=== PATIENT | male | born 1945 | race Caucasian/White ===

== ENCOUNTER → 2021-03-18 | Outpatient (CLI) | payer MEDICARE ==
[~2021-03-18] MED LIST: BENAZEPRIL-HCT1 EAC1 PO; DOXAZOSIN MESYLA4 MG PO; FINASTERIDE5 MG PO; LEVOTHYROXINE125 MCG PO
== END ==
LOC: RAD 11:11
PROVIDERS: ATTEND Internal Medicine Gastroenterology
DX: K59.09 Other constipation (principal); Z86.010 Personal history of colon polyps
CPT/HCPCS: 74018

== ENCOUNTER → 2021-03-26 | Day surgery (SDC) | payer MEDICARE ==
[2021-03-22 14:36] LABS: BASOPHILS # (AUTO) 0.1 (0.0-0.1); BASOPHILS % 0.6 % (0.0-1.0); EOSINOPHILS # (AUTO) 0.2 (0.0-0.4); EOSINOPHILS % 2.7 % (0.0-6.0); HEMATOCRIT 42.3 % (38.2-49.6); HEMOGLOBIN 14.2 g/dL (14.0-18.0); LYMPHOCYTES # (AUTO) 2.3 (1.0-3.2); LYMPHOCYTES % 29.4 % (18.0-39.1); MEAN CORPUSCULAR HEMOGLOBIN 31.5 pg (28-32); MEAN CORPUSCULAR HGB CONC 33.6 g/dL (31-35); MEAN CORPUSCULAR VOLUME 93.8 fL (81-99); MONOCYTES # (AUTO) 0.5 (0.2-0.8); MONOCYTES % 6.5 % (4.4-11.3); NEUTROPHILS # (AUTO) 4.7 (2.1-6.9); NEUTROPHILS % 60.5 % (38.7-80.0); PLATELET COUNT 181 x10e3/uL (140-360); RED BLOOD COUNT 4.51 x10e6/uL (4.3-5.7); RED CELL DISTRIBUTION WIDTH 12.6 % (11.7-14.4)
[~2021-03-26] MED LIST changes: +ASPIRIN81 MG PO; +FLOMAX0.4 MG PO; +GLIMEPIRIDE2 MG PO; +LANTUS 3ML100 UNITS/ SC; +LIPITOR10 MG PO; +METFORMIN HCL500 M1 PO; +ZESTRIL10 MG PO
[2021-03-26 15:00] VITALS: BP 133/91
== END | disposition home or self-care (01) ==
LOC: OR 10:56
PROVIDERS: ATTEND Internal Medicine Gastroenterology
DX: Z09 Encounter for follow-up examination after completed treatment for conditions other than malignant neoplasm (principal); D12.3 Benign neoplasm of transverse colon; K57.30 Diverticulosis of large intestine without perforation or abscess without bleeding; K59.09 Other constipation; K64.8 Other hemorrhoids; I10 Essential (primary) hypertension; E03.9 Hypothyroidism, unspecified; E11.9 Type 2 diabetes mellitus without complications; N40.0 Benign prostatic hyperplasia without lower urinary tract symptoms; I45.10 Unspecified right bundle-branch block; F17.210 Nicotine dependence, cigarettes, uncomplicated; Z01.810 Encounter for preprocedural cardiovascular examination; Z01.812 Encounter for preprocedural laboratory examination; Z20.822 Contact with and (suspected) exposure to COVID-19; Z79.4 Long term (current) use of insulin; Z79.82 Long term (current) use of aspirin; Z68.30 Body mass index [BMI] 30.0-30.9, adult; Z86.19 Personal history of other infectious and parasitic diseases
CPT/HCPCS: 36415 ×2; 45380; 45384; 82948; 85025; 88305; 93005; U0002; 45378

== ENCOUNTER → 2025-03-21 | Outpatient (REF) | payer MEDICARE | LOC: US 11:59 | PROVIDERS: ATTEND Nurse Practitioner | DX: R10.11 Right upper quadrant pain (principal) | CPT/HCPCS: 76700 ==